=== PATIENT | male | born 1985 | race Caucasian/White ===

== ENCOUNTER 2025-09-02 22:01 | Emergency (ER) | payer OTHER ==
[2025-09-02] MEDS ORDERED: Sodium Chloride 0.9% 10 ML Syringe FLUSH PRN (22:18)
[2025-09-02 22:40] LABS: MEAN PLATELET VOLUME 8.0 fL (6.7-11.0); PLATELET COUNT,PLT 206 x10(3)uL (117-477); RED BLOOD CELL COUNT 5.09 x10(6)uL (3.90-5.90); RED CELL DISTRIBUTION WIDTH 13.9 % (12.4-15.0); WHITE BLOOD CELL COUNT,WBC 10.5 x10-3/uL (3.2-10.1)
[2025-09-02 22:51] LABS: BLOOD UREA NITROGEN,BUN 16 mg/dL (7-18); CARBON DIOXIDE,CO2 28 mmol/L (21-32); CHLORIDE,CL 104 mmol/L (100-110); CREATININE 0.8 mg/dL (0.70-1.30); EST CRCL DRUG DOSING (CG) 137.33 mL/min; ESTIMATED GFR 114 mL/min (>60); GLUCOSE RANDOM 103 mg/dL (80-116); POTASSIUM,K 3.7 mmol/L (3.5-5.3); SODIUM,NA 142 mmol/L (135-145)
[2025-09-02 22:57] LABS: A/G RATIO 1.2; ALANINE AMINOTRANSFERASE,ALT 40 U/L (12-36); ASPARTATE AMNIOTRANSFERASE,AST 33 IU/L (5-25); BILIRUBIN TOTAL 0.3 mg/dL (0.1-1.3); PROTEIN TOTAL,TP 7.4 g/dL (6.0-8.0)
[2025-09-02 23:01] LABS: PRO B-TYPE NATRIUR PEPT,BNPPRO 33.0 pg/mL (<=125)
[2025-09-02 23:11] LABS: BAND PERCENT MAN 2 % (0-6); BASOPHILS PERCENT MAN 1 % (0-2); EOSINOPHILS PERCENT MAN 3 % (0-5); LYMPHOCYTES PERCENT MAN 34 % (13-37); MONOCYTES PERCENT MAN 4 % (4-12); SEG NEUTROPHILS PERCENT MAN 56 % (46-82)
== END 2025-09-03 01:07 | disposition home or self-care (01) ==
LOC: SUPCPDRO 22:01 → FB.ED 22:01
DX: R07.2 Precordial pain (principal)
CPT/HCPCS: 36415; 71045; 80053; 83880; 84484; 85025; 85379; 93005; 93010; 99284; 99285